=== PATIENT | female | born 1950 | race Caucasian/White ===

== ENCOUNTER → 2016-11-10 | Emergency (ER) | payer BC | END | disposition disaster alternative care site (69) | LOC: GAMB 14:42 | DX: S09.90XA Unspecified injury of head, initial encounter (principal); S00.91XA Abrasion of unspecified part of head, initial encounter; S00.93XA Contusion of unspecified part of head, initial encounter; G89.11 Acute pain due to trauma; R51 Headache; V49.9XXA Car occupant (driver) (passenger) injured in unspecified traffic accident, initial encounter ==